=== PATIENT | female | born 1960 | race African-American/Black ===

== ENCOUNTER 2021-06-08 09:06 | Emergency (ER) | payer MEDICAID, OTHER ==
[~2021-06-08] VITALS: Ht 165.1 cm; Wt 100.0 kg
[2021-06-08] MEDS ORDERED: ALBUTEROL (0.083%) 2.5MG/3ML NEB HHN STA (10:21)
[2021-06-08] MEDS ORDERED: MAGNESIUM 2 G PREMIX 50 ML IV STA (10:21)
[2021-06-08] MEDS ORDERED: IPRATROPIUM BROMIDE (0.02%) 0.5MG/2.5ML NEB HHN STA (10:21)
[2021-06-08] MEDS ORDERED: METHYLPREDNISOLONE SOD SUCC 125 MG/2 ML VIAL IV STA (10:21)
[2021-06-08 11:33] LABS: BASOPHILS % 0.1 % (0.0-2.0); HEMATOCRIT. 41.2 % (36.0-48.0); HEMOGLOBIN. 13.4 g/dL (12.0-16.0); LYMPHOCYTES % 10.4 % (20.0-50.0); MEAN CORPUSCULAR HEMOGLOBIN 30.4 pg (28.0-32.0); MEAN CORPUSCULAR VOLUME 93.5 fL (81.0-99.0); MEAN PLATELET VOLUME 8.8 fl (7.4-10.4); MONOCYTES % 7.7 % (2.0-8.0); NEUTROPHILS % 81.8 % (40.0-76.0); PLATELET 216 x1000/uL (130-400); RED BLOOD CELL COUNT 4.41 mill/uL (4.2-5.4); RED CELL DISTRIBUTION WIDTH 15.5 % (11.6-14.6)
[2021-06-08 13:29] LABS: CHLORIDE 102 mEq/L (98-107)
[2021-06-08] MEDS ORDERED: GABAPENTIN 100MG CAPSULE PO ONE (14:45)
[2021-06-08] MEDS ORDERED: ALBUTEROL (0.083%) 2.5MG/3ML NEB ONE (15:12)
[2021-06-08] MEDS ORDERED: IPRATROPIUM BROMIDE (0.02%) 0.5MG/2.5ML NEB ONE (15:12)
[2021-06-08 16:18] VITALS: BP 159/84
== END 2021-06-08 19:14 | disposition left against medical advice (07) ==
LOC: ER 09:06 → CANBEDREQ 20:13
DX: J45.901 Unspecified asthma with (acute) exacerbation (principal)
CPT/HCPCS: 36415; 71045; 80053; 83880; 84484; 85025; 93005; 94640; 96365; 96366; 96375; 99291; J2930; J3475; Z7610

== ENCOUNTER 2022-08-12 22:01 | Emergency (ER) | payer MEDICAID ==
[~2022-08-12] VITALS: Ht 175.3 cm; Wt 145.0 kg
[2022-08-12] MEDS ORDERED: KETOROLAC 30MG/ML VIAL IM ONE (23:45)
[2022-08-13] MEDS ORDERED: BACL-141 MT (02:37)
[2022-08-13] MEDS ORDERED: IBUP-2029 MT (02:37)
[2022-08-13 03:01] VITALS: BP 158/82
== END 2022-08-13 03:07 | disposition home or self-care (01) ==
LOC: ER 22:01
DX: M47.896 Other spondylosis, lumbar region (principal); M54.30 Sciatica, unspecified side; J45.909 Unspecified asthma, uncomplicated; Z88.5 Allergy status to narcotic agent
CPT/HCPCS: 72100; 96372; 99283; J1885; Z7610

== ENCOUNTER 2022-08-18 02:39 | Inpatient (IN) | payer MEDICAID ==
[~2022-08-18] VITALS: Ht 165.1 cm; Wt 120.7 kg
[2022-08-18] MEDS: IPRATROPIUM BROMIDE (0.02%) 0.5MG/2.5ML NEB HHN SCH ×2 (01:38→21:11)
[~2022-08-18 02:39] MED LIST: BACL-141 MT; IBUP-2029 MT
[2022-08-18] MEDS ORDERED: IPRATROPIUM BROMIDE (0.02%) 0.5MG/2.5ML NEB HHN ONE (05:30)
[2022-08-18] MEDS ORDERED: ALBUTEROL (0.5%) 2.5MG/0.5ML NEB HHN ONE (05:30)
[2022-08-18] MEDS ORDERED: DEXAMETHASONE 10 MG/ML VIAL IV ONE (05:30)
[2022-08-18 05:31] LABS: BASOPHILS % 0.8 % (0.0-2.0); EOSINOPHILS % 3.5 % (0.0-5.0); HEMATOCRIT. 39.4 % (36.0-48.0); HEMOGLOBIN. 12.7 g/dL (12.0-16.0); LYMPHOCYTES % 42.3 % (20.0-50.0); MEAN CORPUSCULAR HEMOGLOBIN 29.4 pg (28.0-32.0); MEAN CORPUSCULAR VOLUME 91.3 fL (81.0-99.0); MEAN PLATELET VOLUME 8.6 fl (7.4-10.4); MONOCYTES % 9.5 % (2.0-8.0); NEUTROPHILS % 43.9 % (40.0-76.0); PLATELET 232 x1000/uL (130-400); RED BLOOD CELL COUNT 4.32 mill/uL (4.2-5.4); RED CELL DISTRIBUTION WIDTH 13.5 % (11.6-14.6)
[2022-08-18 05:36] LABS: CHLORIDE 100 mEq/L (98-107)
[2022-08-18] MEDS ORDERED: FUROSEMIDE 40MG/4ML VIAL IVP ONE (06:00)
[2022-08-18] MEDS ORDERED: DIPHENHYDRAMINE 50MG/ML VIAL IV PRN (10:30)
[2022-08-18] MEDS ORDERED: IPRATROPIUM/ALBUTEROL 0.5-3(2.5)MG/3ML NEB HHN PRN (10:30)
[2022-08-18] MEDS ORDERED: ONDANSETRON HCL 4MG/2ML INJ IV PRN (10:30)
[2022-08-18] MEDS ORDERED: METHYLPREDNISOLONE SOD SUCC 125 MG/2 ML VIAL IV SCH (10:30)
[2022-08-18] MEDS ORDERED: ACETAMINOPHEN 325MG TABLET PO PRN (10:30)
[2022-08-18] MEDS ORDERED: ALBUTEROL (0.083%) 2.5MG/3ML NEB HHN PRN (11:30)
[2022-08-18] MEDS ORDERED: IPRATROPIUM BROMIDE (0.02%) 0.5MG/2.5ML NEB HHN PRN (11:30)
[2022-08-18] MEDS: GUAIFENESIN 600MG ER TABLET PO SCH ×2 (13:35→21:10)
[2022-08-18] MEDS: LORATADINE 10MG TABLET PO SCH (13:35)
[2022-08-18] MEDS: METHYLPREDNISOLONE SOD SUCC 40 MG/ML VIAL IV SCH ×2 (13:35→21:09)
[2022-08-18] MEDS: AMLODIPINE 2.5MG TABLET PO SCH ×2 (13:39→21:10)
[2022-08-18 16:00] VITALS: BP_SYST 155; BP_DIAS 53; BP_DIAS 63
[2022-08-18] MEDS ORDERED: MONTELUKAST SODIUM 10MG TABLET PO SCH (17:00)
[2022-08-18 20:00] VITALS: BP 181/77
[2022-08-18] MEDS: ALBUTEROL (0.083%) 2.5MG/3ML NEB HHN SCH (21:12)
[2022-08-19] VITALS: BP 178/74
[2022-08-19] MEDS: ALBUTEROL (0.083%) 2.5MG/3ML NEB HHN SCH ×2 (01:38→14:02)
[2022-08-19 04:00] VITALS: BP 171/85
[2022-08-19] MEDS: METHYLPREDNISOLONE SOD SUCC 40 MG/ML VIAL IV SCH ×2 (05:27→14:00)
[2022-08-19] MEDS ORDERED: HYDRALAZINE 20MG/ML VIAL IV PRN (06:00)
[2022-08-19 08:25] LABS: CHLORIDE 101 mEq/L (98-107)
[2022-08-19 08:35] VITALS: BP 165/72
[2022-08-19] MEDS: GUAIFENESIN 600MG ER TABLET PO SCH (09:00)
[2022-08-19] MEDS ORDERED: AMLODIPINE 5MG TABLET PO SCH (09:00)
[2022-08-19] MEDS: LORATADINE 10MG TABLET PO SCH (09:00)
[2022-08-19] MEDS ORDERED: ENOXAPARIN 30MG/0.3ML SYR SUBCUT SCH (09:00)
[2022-08-19 09:15] LABS: *AMPHETAMINES SCREEN URINE NEGATIVE (NEGATIVE); *BARBITURATES SCREEN URINE NEGATIVE (NEGATIVE); *BENZODIAZEPINES SCREEN URINE NEGATIVE (NEGATIVE); *COCAINE SCREEN URINE NEGATIVE (NEGATIVE); CANNABINOID URINE SCREEN NEGATIVE (NEGATIVE); METHADONE URINE SCREEN NEGATIVE (NEGATIVE); OPIATES URINE SCREEN NEGATIVE (NEGATIVE); PHENCYCLIDINE URINE SCREEN NEGATIVE (NEGATIVE)
[2022-08-19] MEDS: HYDRALAZINE HCL 50MG TABLET PO SCH ×2 (09:23→14:00)
[2022-08-19 12:34] VITALS: BP 175/72
[2022-08-19] MEDS: IPRATROPIUM BROMIDE (0.02%) 0.5MG/2.5ML NEB HHN SCH (14:03)
[2022-08-19 15:37] LABS: BG BASE EXCESS 5.1 mmol/L (-2.0-2.0); BG CARBOXYHEMOGLOBIN 0.7 % (0.5-1.5); BG DEOXYHEMOGLOBIN 4.5 % (0.0-5.0); BG FRACTION INSPIRED OXYGEN 21; BG HCO3 ACT 31.9 mmol/L (22.0-26.0); BG METHEMOGLOBIN 0.1 % (0.0-1.5); BG OXYGEN SATURATION 95.5 % (92.0-98.5); BG OXYHEMOGLOBIN 94.7 % (94.0-97.0); BG PCO2 55.5 mmHg (35.0-45.0); BG PH 7.377 (7.350-7.450); BG PO2 76.8 mmHg (75.0-100.0); BG SAMPLE SITE RIGHT BRACHIAL; BG TOTAL HEMOGLOBIN 14.5 g/dL (12.0-18.0); BG VENT MODE ROOM AIR
[2022-08-19 16:00] VITALS: BP 156/71
[2022-08-19 16:46] VITALS: BP 156/71
[2022-08-19] MEDS ORDERED: ENOXAPARIN 40MG/0.4ML SYR SUBCUT SCH (21:00)
== END 2022-08-19 18:20 | disposition home or self-care (01) | DRG 194 ==
LOC: ER 02:39 → 7WST 06:08 → ENRESERV 14:26 → ER 15:54
PROVIDERS: ADMIT Internal Medicine; ATTEND Internal Medicine
DX: I11.0 Hypertensive heart disease with heart failure (principal); J96.01 Acute respiratory failure with hypoxia; I44.2 Atrioventricular block, complete; J44.1 Chronic obstructive pulmonary disease with (acute) exacerbation; J45.901 Unspecified asthma with (acute) exacerbation; I50.31 Acute diastolic (congestive) heart failure; Z20.822 Contact with and (suspected) exposure to COVID-19; E66.9 Obesity, unspecified; F17.210 Nicotine dependence, cigarettes, uncomplicated; M54.32 Sciatica, left side; G47.33 Obstructive sleep apnea (adult) (pediatric); J98.11 Atelectasis; Z68.42 Body mass index [BMI] 45.0-49.9, adult; Z79.82 Long term (current) use of aspirin
CPT/HCPCS: 36415; 36600; 71045; 80048; 80053; 80305; 82375; 82805; 83735; 83880; 84443; 84484; 85025; 87426; 87804; 93005; 93306; 93970; 94640; 99291; C9803; J0360; J1100; J1650; J1940; J2920

== ENCOUNTER 2022-11-09 02:04 | Emergency (ER) | payer MEDICAID ==
[~2022-11-09] VITALS: Ht 172.7 cm; Wt 108.0 kg
[2022-11-09] MEDS ORDERED: TRAM200C4 MT (08:06)
[2022-11-09] MEDS ORDERED: HYDROCODONE/ACETAMINOPHEN 5/325MG TABLET PO ONE (08:15)
[2022-11-09] MEDS ORDERED: TRAM100T34 MT (08:22)
[2022-11-09 08:36] VITALS: BP 145/87
== END 2022-11-09 08:37 | disposition home or self-care (01) ==
LOC: ER 02:04
DX: M54.30 Sciatica, unspecified side (principal)
CPT/HCPCS: 99283

== ENCOUNTER 2023-07-04 17:01 | Emergency (ER) | payer BC, MEDICAID ==
[~2023-07-04] VITALS: Ht 182.9 cm; Wt 95.0 kg
[~2023-07-04 17:01] MED LIST changes: +TRAM100T34 MT
[2023-07-04 17:08] VITALS: BP 120/78; TEMP 97.9
[2023-07-04] MEDS ORDERED: METHYLPREDNISOLONE SOD SUCC 125MG/2ML (ACT-O-VIAL) IV STA (17:25)
[2023-07-04] MEDS ORDERED: IPRATROPIUM BROMIDE (0.02%) 0.5MG/2.5ML NEB HHN STA (17:25)
[2023-07-04] MEDS: ALBUTEROL (0.083%) 2.5MG/3ML NEB HHN SCH ×3 (18:00→18:03)
[2023-07-04 18:03] VITALS: PULSE 81; RESP 24; O2SAT 94
[2023-07-04 18:45] LABS: ALANINE AMINOTRANSFERASE 17 IU/L (10-49); ALBUMIN 4.1 g/dL (3.2-4.8); ASPARTATE AMINOTRANSFERASE 33 IU/L (<34); BILIRUBIN TOTAL 0.3 mg/dL (0.1-1.0); CALCIUM 9.6 mg/dL (8.7-10.4); CARBON DIOXIDE 33 mEq/L (21-32); CHLORIDE 103 mEq/L (98-107); CREATININE 0.7 mg/dL (0.6-1.0); GLUCOSE 110 mg/dL (70-105); POTASSIUM 3.6 mEq/L (3.5-5.1); PROTEIN TOTAL 7.3 g/dL (6.0-8.3); SODIUM 140 mEq/L (136-145); TROPONIN I HIGH SENSITIVITY 24 ng/L (3.0-34); UREA NITROGEN BLOOD 10 mg/dL (9-23)
[2023-07-04 18:50] LABS: BASOPHILS % 0.7 % (0.0-2.0); EOSINOPHILS % 2.1 % (0.0-5.0); HEMATOCRIT. 41.2 % (36.0-48.0); HEMOGLOBIN. 13.4 g/dL (12.0-16.0); LYMPHOCYTES % 29.4 % (20.0-50.0); MEAN CORPUSCULAR HEMOGLOBIN 29.9 pg (28.0-32.0); MEAN CORPUSCULAR HGB CONC 32.4 g/dL (31.0-37.0); MEAN CORPUSCULAR VOLUME 92.3 fL (81.0-99.0); MONOCYTES % 11.2 % (2.0-8.0); NEUTROPHILS % 56.6 % (40.0-76.0); PLATELET 214 x1000/uL (130-400); RED BLOOD CELL COUNT 4.46 mill/uL (4.2-5.4); RED CELL DISTRIBUTION WIDTH 13.7 % (11.6-14.6); WHITE BLOOD COUNT 5.1 x1000/uL (4.5-11.0)
[2023-07-04 20:57] LABS: INR 0.9
[2023-07-04] MEDS ORDERED: P50 MT (21:08)
[2023-07-04] MEDS ORDERED: ALBU6.7H15 INH (21:08)
== END 2023-07-04 21:05 | disposition home or self-care (01) ==
LOC: ER 17:01
DX: J44.1 Chronic obstructive pulmonary disease with (acute) exacerbation (principal); E78.00 Pure hypercholesterolemia, unspecified; I10 Essential (primary) hypertension; I11.0 Hypertensive heart disease with heart failure; I50.9 Heart failure, unspecified; Z20.822 Contact with and (suspected) exposure to COVID-19; Z91.041 Radiographic dye allergy status; Z88.5 Allergy status to narcotic agent
CPT/HCPCS: 80053; 83880; 85025; 85610; 85730; 84484; 87804 ×2; 36415; 71045; 93005; 94644; 96374; 99285; 87426; J2930; Z7610 ×5

== ENCOUNTER 2023-12-10 22:20 | Emergency (ER) | payer MEDICAID, OTHER ==
[~2023-12-10] VITALS: Ht 165.1 cm; Wt 118.0 kg
[~2023-12-10 22:20] MED LIST changes: +ALBU6.7H15 INH; +P50 MT
[2023-12-10 22:46] VITALS: O2SAT 96
[2023-12-10] MEDS ORDERED: ALBUTEROL (0.083%) 2.5MG/3ML NEB HHN STA (22:48)
[2023-12-10] MEDS ORDERED: IPRATROPIUM BROMIDE (0.02%) 0.5MG/2.5ML NEB HHN STA (22:48)
[2023-12-10] MEDS ORDERED: METHYLPREDNISOLONE SOD SUCC 125MG/2ML (ACT-O-VIAL) IV STA (22:48)
[2023-12-10] MEDS ORDERED: MAGNESIUM 2 G PREMIX 50 ML IV ONE (23:00)
[2023-12-10 23:15] VITALS: BP 187/76; PULSE 66; RESP 15; TEMP 98.3
[2023-12-10] MEDS: GUAIFENESIN 600MG ER TABLET PO NR (23:15)
[2023-12-11 00:01] LABS: BASOPHILS % 0.5 % (0.0-2.0); EOSINOPHILS % 2.6 % (0.0-5.0); HEMATOCRIT. 42.1 % (36.0-48.0); HEMOGLOBIN. 13.5 g/dL (12.0-16.0); LYMPHOCYTES % 36.5 % (20.0-50.0); MEAN CORPUSCULAR HEMOGLOBIN 29.3 pg (28.0-32.0); MEAN CORPUSCULAR HGB CONC 32.1 g/dL (31.0-37.0); MEAN CORPUSCULAR VOLUME 91.1 fL (81.0-99.0); MEAN PLATELET VOLUME 8.4 fl (7.4-10.4); MONOCYTES % 10.6 % (2.0-8.0); NEUTROPHILS % 49.8 % (40.0-76.0); PLATELET 222 x1000/uL (130-400); RED BLOOD CELL COUNT 4.62 mill/uL (4.2-5.4); WHITE BLOOD COUNT 5.3 x1000/uL (4.5-11.0)
[2023-12-11 00:06] LABS: CHLORIDE 103 mEq/L (98-107); POTASSIUM 3.9 mEq/L (3.5-5.1); SODIUM 138 mEq/L (136-145)
[2023-12-11 00:07] LABS: CALCIUM 10.5 mg/dL (8.7-10.4); CARBON DIOXIDE 30 mEq/L (21-32)
[2023-12-11 00:11] LABS: INR 0.9; PARTIAL THROMBOPLASTIN TIME 29.8 sec (23.4-31.0); PROTHROMBIN TIME 10.2 sec (9.6-11.0)
[2023-12-11 00:12] LABS: CREATININE 0.7 mg/dL (0.6-1.0); GLUCOSE 102 mg/dL (70-105); UREA NITROGEN BLOOD 11 mg/dL (9-23)
[2023-12-11 00:14] LABS: TROPONIN I HIGH SENSITIVITY 31 ng/L (3.0-34)
[2023-12-11 00:20] LABS: ETHANOL BLOOD < 10 mg/dL (<10)
[2023-12-11] MEDS ORDERED: IPRATROPIUM BROMIDE (0.02%) 0.5MG/2.5ML NEB HHN NR (00:30)
[2023-12-11] MEDS ORDERED: CEFTRIAXONE 1GM/50ML 50 ML IV NR (00:30)
[2023-12-11] MEDS ORDERED: MAGNESIUM 2 G PREMIX 50 ML IV NR (00:30)
[2023-12-11] MEDS ORDERED: ALBUTEROL (0.083%) 2.5MG/3ML NEB HHN NR (00:30)
[2023-12-11] MEDS ORDERED: ACETAMINOPHEN 1000MG/100ML 100 ML IV NR (00:30)
[2023-12-11] MEDS: AZITHROMYCIN 500MG/250ML 250 ML IV NR (01:08)
[2023-12-11] MEDS: METHYLPREDNISOLONE SOD SUCC 125MG/2ML (ACT-O-VIAL) IV NR (01:09)
== END 2023-12-11 02:34 | disposition left against medical advice (07) ==
LOC: ER 22:20
DX: J18.8 Other pneumonia, unspecified organism (principal); J45.901 Unspecified asthma with (acute) exacerbation; I10 Essential (primary) hypertension; Z88.6 Allergy status to analgesic agent; Z91.040 Latex allergy status
CPT/HCPCS: 80048; 80320; 83880; 83690; 85025; 85610; 85730; 87040; 84484; 36415; 71045; 93005; 99285; 96365; 96375; J0456; J2919; G0480; J0131

== ENCOUNTER 2024-02-12 04:22 | Emergency (ER) | payer OTHER ==
[~2024-02-12] VITALS: Ht 165.1 cm; Wt 109.0 kg
[2024-02-12 04:25] VITALS: O2SAT 20
[2024-02-12] MEDS ORDERED: ALBUTEROL (0.083%) 2.5MG/3ML NEB HHN STA (04:30)
[2024-02-12] MEDS: GUAIFENESIN 600MG ER TABLET PO ONE (04:30)
[2024-02-12] MEDS ORDERED: ACETAMINOPHEN 325MG TABLET PO ONE (04:30)
[2024-02-12 05:34] LABS: BASOPHILS % 0.2 % (0.0-2.0); EOSINOPHILS % 0.1 % (0.0-5.0); HEMATOCRIT. 39.8 % (36.0-48.0); LYMPHOCYTES % 10.2 % (20.0-50.0); MEAN CORPUSCULAR HEMOGLOBIN 30.2 pg (28.0-32.0); MEAN CORPUSCULAR HGB CONC 32.6 g/dL (31.0-37.0); MEAN CORPUSCULAR VOLUME 92.7 fL (81.0-99.0); MEAN PLATELET VOLUME 8.5 fl (7.4-10.4); NEUTROPHILS % 85.5 % (40.0-76.0); PLATELET 228 x1000/uL (130-400); WHITE BLOOD COUNT 9.8 x1000/uL (4.5-11.0)
[2024-02-12 05:44] LABS: CHLORIDE 103 mEq/L (98-107); POTASSIUM 4.4 mEq/L (3.5-5.1); SODIUM 140 mEq/L (136-145)
[2024-02-12 05:45] LABS: CARBON DIOXIDE 32 mEq/L (21-32)
[2024-02-12] MEDS: ACETAMINOPHEN 325MG TABLET PO NR (05:45)
[2024-02-12] MEDS: ALBUTEROL (0.083%) 2.5MG/3ML NEB HHN NR (05:45)
[2024-02-12 05:50] LABS: CREATININE 0.8 mg/dL (0.6-1.0); GLUCOSE 140 mg/dL (70-105); UREA NITROGEN BLOOD 15 mg/dL (9-23)
[2024-02-12 05:51] LABS: TROPONIN I HIGH SENSITIVITY 32 ng/L (3.0-34)
[2024-02-12 05:52] LABS: ALANINE AMINOTRANSFERASE 25 IU/L (10-49); ALBUMIN 4.6 g/dL (3.2-4.8); ASPARTATE AMINOTRANSFERASE 26 IU/L (<34); BILIRUBIN TOTAL 0.3 mg/dL (0.1-1.0)
[2024-02-12 05:53] LABS: INR 0.9; PARTIAL THROMBOPLASTIN TIME 29.1 sec (23.4-31.0); PROTEIN TOTAL 7.2 g/dL (6.0-8.3); PROTHROMBIN TIME 9.7 sec (9.6-11.0)
[2024-02-12 05:54] LABS: BILIRUBIN DIRECT < 0.1 mg/dL (<=3.0); ETHANOL BLOOD < 10 mg/dL (<10)
[2024-02-12 08:27] LABS: TROPONIN I HIGH SENSITIVITY 27 ng/L (3.0-34)
[2024-02-12 13:54] VITALS: BP 153/72; PULSE 69; RESP 18; TEMP 36.94740; O2SAT 99
== END 2024-02-12 14:15 | disposition home or self-care (01) ==
LOC: ER 04:22 → CANBEDREQ 09:36 → ER 14:15
DX: M79.89 Other specified soft tissue disorders (principal); F17.200 Nicotine dependence, unspecified, uncomplicated; J44.1 Chronic obstructive pulmonary disease with (acute) exacerbation; J45.909 Unspecified asthma, uncomplicated; I11.0 Hypertensive heart disease with heart failure; I50.9 Heart failure, unspecified; Z88.8 Allergy status to other drugs, medicaments and biological substances; Z88.5 Allergy status to narcotic agent; Z98.890 Other specified postprocedural states
CPT/HCPCS: 36415; 71045; 80048; 80076; 80320; 83880; 84443; 84484; 85025; 93005; 99285; G0480

== ENCOUNTER 2024-07-06 01:43 | Emergency (ER) | payer MEDICARE, OTHER ==
[~2024-07-06] VITALS: Ht 167.6 cm; Wt 100.0 kg
[2024-07-06 01:46] VITALS: BP 181/74; PULSE 78; RESP 18; TEMP 99; O2SAT 97
[2024-07-06 02:51] LABS: CHLORIDE 99 mEq/L (98-107); POTASSIUM 3.8 mEq/L (3.5-5.1); SODIUM 142 mEq/L (136-145)
[2024-07-06 02:52] LABS: CARBON DIOXIDE 33 mEq/L (21-32)
[2024-07-06 02:53] LABS: CALCIUM 10.2 mg/dL (8.7-10.4)
[2024-07-06 02:57] LABS: CREATININE 0.9 mg/dL (0.6-1.0); GLUCOSE 104 mg/dL (70-105); UREA NITROGEN BLOOD 12 mg/dL (9-23)
[2024-07-06 03:21] LABS: TROPONIN I HIGH SENSITIVITY 39 ng/L (3.0-34)
[2024-07-06 03:33] LABS: BASOPHILS % 0.4 % (0.0-2.0); EOSINOPHILS % 2.2 % (0.0-5.0); HEMATOCRIT. 42.5 % (36.0-48.0); HEMOGLOBIN. 13.8 g/dL (12.0-16.0); LYMPHOCYTES % 34.1 % (20.0-50.0); MEAN CORPUSCULAR HEMOGLOBIN 29.6 pg (28.0-32.0); MEAN CORPUSCULAR HGB CONC 32.4 g/dL (31.0-37.0); MEAN CORPUSCULAR VOLUME 91.4 fL (81.0-99.0); MEAN PLATELET VOLUME 8.2 fl (7.4-10.4); NEUTROPHILS % 51.3 % (40.0-76.0); PLATELET 216 x1000/uL (130-400); RED BLOOD CELL COUNT 4.66 mill/uL (4.2-5.4); RED CELL DISTRIBUTION WIDTH 13.7 % (11.6-14.6); WHITE BLOOD COUNT 4.5 x1000/uL (4.5-11.0)
[2024-07-06 04:55] LABS: TROPONIN I HIGH SENSITIVITY 39 ng/L (3.0-34)
[2024-07-06] MEDS ORDERED: BENZ100C86 MT (05:19)
== END 2024-07-06 05:48 | disposition home or self-care (01) ==
LOC: ER 01:43
DX: J06.9 Acute upper respiratory infection, unspecified (principal); B97.89 Other viral agents as the cause of diseases classified elsewhere; R07.89 Other chest pain; I10 Essential (primary) hypertension; J45.909 Unspecified asthma, uncomplicated; Z88.5 Allergy status to narcotic agent; Z88.8 Allergy status to other drugs, medicaments and biological substances; Z91.041 Radiographic dye allergy status
CPT/HCPCS: 36415; 71046; 80048; 83880; 84484; 85025; 99284

== ENCOUNTER 2024-10-06 21:24 | Emergency (ER) | payer MEDICARE, MEDICAID ==
[~2024-10-06] VITALS: Ht 165.1 cm; Wt 121.0 kg
[~2024-10-06 21:24] MED LIST changes: +BENZ100C86 MT
[2024-10-06 21:38] VITALS: O2SAT 94
[2024-10-06] MEDS: ACETAMINOPHEN 325MG TABLET PO ONE (23:07)
[2024-10-06] MEDS: METOCLOPRAMIDE HCL 10MG TABLET PO ONE (23:07)
[2024-10-07 00:56] VITALS: BP 176/81; PULSE 76; RESP 16; TEMP 37.1; O2SAT 96
== END 2024-10-07 01:03 | disposition home or self-care (01) ==
LOC: ER 21:24
DX: R51.9 Headache, unspecified (principal); M25.561 Pain in right knee; M25.562 Pain in left knee; J45.909 Unspecified asthma, uncomplicated; I10 Essential (primary) hypertension; Z91.041 Radiographic dye allergy status; Z88.8 Allergy status to other drugs, medicaments and biological substances; Z88.5 Allergy status to narcotic agent; W01.0XXA Fall on same level from slipping, tripping and stumbling without subsequent striking against object, initial encounter; Y93.89 Activity, other specified; Y92.89 Other specified places as the place of occurrence of the external cause; Y99.8 Other external cause status
CPT/HCPCS: 99284; 70450; J8597

== ENCOUNTER 2025-01-03 01:02 | Emergency (ER) | payer MEDICARE, MEDICAID ==
[~2025-01-03] VITALS: Ht 160 cm; Wt 105.0 kg
[2025-01-03 01:11] VITALS: O2SAT 93
[2025-01-03] MEDS: POLYETHYLENE GLYCOL 3350 (17GM) 1 DOSE PACK PO ONE (01:45)
[2025-01-03 02:01] LABS: BASOPHILS % 0.4 % (0.0-2.0); EOSINOPHILS % 2.5 % (0.0-5.0); HEMATOCRIT. 40.7 % (36.0-48.0); HEMOGLOBIN. 13.2 g/dL (12.0-16.0); LYMPHOCYTES % 29.7 % (20.0-50.0); MEAN PLATELET VOLUME 8.2 fl (7.4-10.4); MONOCYTES % 11.9 % (2.0-8.0); NEUTROPHILS % 55.5 % (40.0-76.0); PLATELET 204 x1000/uL (130-400); RED BLOOD CELL COUNT 4.60 mill/uL (4.2-5.4); RED CELL DISTRIBUTION WIDTH 14.4 % (11.6-14.6)
[2025-01-03 02:13] LABS: CREATININE 0.9 mg/dL (0.6-1.0); UREA NITROGEN BLOOD 13 mg/dL (9-23)
[2025-01-03 02:15] LABS: ASPARTATE AMINOTRANSFERASE 32 IU/L (<34); BILIRUBIN DIRECT 0.1 mg/dL (<=3.0); BILIRUBIN TOTAL 0.4 mg/dL (0.1-1.0); PROTEIN TOTAL 7.0 g/dL (6.0-8.3)
[2025-01-03] MEDS: LIDOCAINE 5% PATCH TOP SCH (02:37)
[2025-01-03] MEDS: DOCUSATE SODIUM 100MG CAPSULE PO ONE (02:37)
[2025-01-03] MEDS: KETOROLAC 15MG/ML VIAL IM ONE (02:37)
[2025-01-03] MEDS ORDERED: MAG-55 MT (04:01)
[2025-01-03] MEDS ORDERED: POLY17PO3 MT (04:01)
[2025-01-03] MEDS ORDERED: NAPR-1176 MT (04:01)
[2025-01-03] MEDS ORDERED: LIDO-53 TP (04:01)
[2025-01-03 04:40] VITALS: BP 193/85; PULSE 82; RESP 16; TEMP 36.7; O2SAT 93
== END 2025-01-03 05:05 | disposition home or self-care (01) ==
LOC: ER 01:20
DX: M54.50 Low back pain, unspecified (principal); R10.9 Unspecified abdominal pain; I10 Essential (primary) hypertension; J45.909 Unspecified asthma, uncomplicated; Z88.5 Allergy status to narcotic agent; Z79.1 Long term (current) use of non-steroidal anti-inflammatories (NSAID); Z88.8 Allergy status to other drugs, medicaments and biological substances; Z79.899 Other long term (current) drug therapy
CPT/HCPCS: 99285; 72131; 80076; 80048; 83690; 85025; 36415; 74176; 96372; J1885

== ENCOUNTER 2025-04-29 05:12 | Inpatient (IN) | payer MEDICARE, MEDICAID ==
[~2025-04-29] VITALS: Ht 165.1 cm; Wt 90.7 kg
[~2025-04-29 05:12] MED LIST changes: +IBUP-1455 MT; -IBUP-2029 MT; +LIDO-53 TP; +MAG-55 MT; +NAPR-1176 MT; +POLY17PO3 MT
[2025-04-29 06:35] LABS: BASOPHILS % 0.5 % (0.0-2.0); EOSINOPHILS % 0.3 % (0.0-5.0); HEMATOCRIT. 41.7 % (36.0-48.0); HEMOGLOBIN. 13.4 g/dL (12.0-16.0); LYMPHOCYTES % 15.3 % (20.0-50.0); MEAN PLATELET VOLUME 8.5 fl (7.4-10.4); MONOCYTES % 5.1 % (2.0-8.0); NEUTROPHILS % 78.8 % (40.0-76.0); PLATELET 214 x1000/uL (130-400); RED BLOOD CELL COUNT 4.64 mill/uL (4.2-5.4); RED CELL DISTRIBUTION WIDTH 14.2 % (11.6-14.6)
[2025-04-29] MEDS: METHYLPREDNISOLONE SOD SUCC 125MG/2ML (ACT-O-VIAL) IV ONE (06:37)
[2025-04-29] MEDS: ALBUTEROL (0.083%) 2.5MG/3ML NEB HHN SCH (06:40)
[2025-04-29] MEDS: IPRATROPIUM BROMIDE (0.02%) 0.5MG/2.5ML NEB HHN SCH (06:41)
[2025-04-29 06:42] VITALS: PULSE 97; RESP 20; O2SAT 97
[2025-04-29 06:47] LABS: CREATININE 0.7 mg/dL (0.6-1.0); UREA NITROGEN BLOOD 13 mg/dL (9-23)
[2025-04-29 06:51] LABS: TROPONIN I HIGH SENSITIVITY 39 ng/L (3.0-34)
[2025-04-29] MEDS ORDERED: HYDROCODONE/ACETAMINOPHEN 5/325MG TABLET PO PRN (08:45)
[2025-04-29] MEDS ORDERED: MAGNESIUM/ALUMINUM HYDROXIDE/SIMETHICONE 30ML UDC PO PRN (08:45)
[2025-04-29] MEDS ORDERED: CLONIDINE 0.1MG TABLET PO PRN (08:45)
[2025-04-29] MEDS ORDERED: ONDANSETRON HCL 4MG/2ML INJ IV PRN (08:45)
[2025-04-29] MEDS ORDERED: ENOXAPARIN 40MG/0.4ML SYR SUBCUT SCH (08:45)
[2025-04-29] MEDS ORDERED: ACETAMINOPHEN 325MG TABLET PO PRN (08:45)
[2025-04-29 08:56] LABS: CLARITY URINE CLEAR (CLEAR); COLOR URINE YELLOW (YELLOW); GLUCOSE URINE NEGATIVE (NEGATIVE); KETONES URINE NEGATIVE (NEGATIVE); LEUKOCYTE ESTERASE URINE NEGATIVE (NEGATIVE); NITRITE URINE NEGATIVE (NEGATIVE); OCCULT BLOOD URINE NEGATIVE (NEGATIVE); PH URINE 8.0 (4.5-8.0); PROTEIN URINE NEGATIVE (NEGATIVE); SPECIFIC GRAVITY URINE 1.007 (1.005-1.030); UROBILINOGEN URINE 1.0 E.U./dL (0.2-1.0)
[2025-04-29] MEDS: PANTOPRAZOLE SODIUM 40 MG/VIAL IV SCH (09:00)
[2025-04-29] MEDS ORDERED: NALOXONE HCL 0.4MG/ML VIAL IV PRN (09:15)
[2025-04-29] MEDS: ENOXAPARIN 30MG/0.3ML SYR SUBCUT SCH (09:30)
[2025-04-29] MEDS: METHYLPREDNISOLONE SOD SUCC 40MG/ML (ACT-O-VIAL) IV SCH (09:31)
[2025-04-29 12:00] VITALS: BP 177/103; PULSE 84; RESP 20; TEMP 36.9; O2SAT 97
[2025-04-29] MEDS: LOSARTAN 50 MG TABLET PO SCH (14:54)
[2025-04-29] MEDS: CLONIDINE 0.1MG TABLET PO PRN (14:55)
[2025-04-29 16:25] VITALS: BP 129/84; PULSE 77; RESP 20; TEMP 36.3; O2SAT 99
[2025-04-29 17:16] VITALS: BP 129/84; PULSE 77; RESP 20; TEMP 36.3624
[2025-04-29] MEDS: DILTIAZEM HCL 60MG TABLET PO SCH (19:25)
[2025-04-29 20:00] VITALS: BP 187/85; PULSE 74; RESP 20; TEMP 36.6; O2SAT 99
[2025-04-29 20:46] LABS: TROPONIN I HIGH SENSITIVITY 26 ng/L (3.0-34)
[2025-04-29 21:00] VITALS: PULSE 84; RESP 18; O2SAT 97
[2025-04-29] MEDS: IPRATROPIUM/ALBUTEROL 0.5-3(2.5)MG/3ML NEB NEB SCH (21:00)
[2025-04-29] MEDS ORDERED: ZOLPIDEM TARTRATE 5MG TABLET PO PRN (21:00)
[2025-04-30] VITALS (9 sets, daily range): BP systolic 134–185; BP diastolic 58–89; PULSE 59–74; RESP 18–20; TEMP 36.2–36.7; O2SAT 92–100
[2025-04-30 07:35] LABS: BASOPHILS % 0.2 % (0.0-2.0); EOSINOPHILS % 0.0 % (0.0-5.0); HEMATOCRIT. 41.2 % (36.0-48.0); HEMOGLOBIN. 13.3 g/dL (12.0-16.0); LYMPHOCYTES % 8.7 % (20.0-50.0); MEAN PLATELET VOLUME 9.0 fl (7.4-10.4); MONOCYTES % 5.4 % (2.0-8.0); NEUTROPHILS % 85.7 % (40.0-76.0); PLATELET 211 x1000/uL (130-400); RED BLOOD CELL COUNT 4.55 mill/uL (4.2-5.4); RED CELL DISTRIBUTION WIDTH 14.4 % (11.6-14.6)
[2025-04-30 07:40] LABS: TROPONIN I HIGH SENSITIVITY 24 ng/L (3.0-34)
[2025-04-30 07:46] LABS: CREATININE 0.7 mg/dL (0.6-1.0); UREA NITROGEN BLOOD 15 mg/dL (9-23)
[2025-04-30 11:27] LABS: *AMPHETAMINES SCREEN URINE NEGATIVE (NEGATIVE); *BARBITURATES SCREEN URINE NEGATIVE (NEGATIVE); *BENZODIAZEPINES SCREEN URINE NEGATIVE (NEGATIVE); *COCAINE SCREEN URINE NEGATIVE (NEGATIVE); CANNABINOID URINE SCREEN NEGATIVE (NEGATIVE); ECSTASY MDMA SCREEN URINE NEGATIVE (NEGATIVE); METHADONE URINE SCREEN NEGATIVE (NEGATIVE); OPIATES URINE SCREEN NEGATIVE (NEGATIVE); PHENCYCLIDINE URINE SCREEN NEGATIVE (NEGATIVE)
[2025-04-30] MEDS: DILTIAZEM HCL 300MG CAPSULE SR 24HR PO SCH (13:00)
[2025-04-30] MEDS: HYDROCHLOROTHIAZIDE 12.5MG CAPSULE PO SCH (13:00)
[2025-04-30] MEDS ORDERED: P50 MT (13:27)
== END 2025-04-30 14:50 | disposition home or self-care (01) | DRG 191 ==
LOC: ER 05:12 → 8WST 07:41 → EDBEDREQ 07:54 → EDBEDREQTM 07:54 → ENRESERV 08:25
PROVIDERS: ADMIT Internal Medicine; ATTEND Internal Medicine
DX: J44.1 Chronic obstructive pulmonary disease with (acute) exacerbation (principal); I50.32 Chronic diastolic (congestive) heart failure; J45.901 Unspecified asthma with (acute) exacerbation; I11.0 Hypertensive heart disease with heart failure; E66.01 Morbid (severe) obesity due to excess calories; J06.9 Acute upper respiratory infection, unspecified; R10.12 Left upper quadrant pain; F17.210 Nicotine dependence, cigarettes, uncomplicated; Z68.33 Body mass index [BMI] 33.0-33.9, adult; Z88.5 Allergy status to narcotic agent; Z88.8 Allergy status to other drugs, medicaments and biological substances; Z79.899 Other long term (current) drug therapy; Z91.148 Patient's other noncompliance with medication regimen for other reason
CPT/HCPCS: 36415; 71045; 76700; 80048; 80305; 81003; 83880; 84443; 84484; 85025; 93005; 93306; 93970; 94070; 94640; 96374; 98960; 99285; J1650; J2470; J2919